=== PATIENT | female | born 1990 | race Caucasian/White ===

== ENCOUNTER 2024-11-26 09:33 | Outpatient (REF) | payer BC, SELFPAY ==
--- OUTSIDE RECORDS SUMMARY | 2024-11-26 10:30 | XMS_ITS | Encounter Summary ---
Author Organization [employer] Address [address] [facility] 7 [place] [address] Care Team Providers Care Winchman/Crane Operator Name Role Phone Yolanda Hoyos MD Primary Care Provider [phone] Reason for Visit * Reason Comments Med Refill Encounter Details Date Type Department Care Team (Late st Contact Info) Description 05/17/2022 Refill [facility] MEDICINE [address] [place] [address] Yolanda Hoyos MD [address] [place] [id number] Moderate persistent asthma without complication Social History Tobacco Use Types Packs/Day Years Used Date Smoking Tobacco: Never Assessed Comments Unknown Sex and Gender Information Value Date Recorded Sex Assigned at Female 01/23/2022 10:20 AM EDT Legal Sex Female 10:20 AM EDT Gender Identity Female 01/23/2022 10:20 AM EDT Sexual Orientation Choose not to disclose 2021 10:20 AM EDT documented as of this encounter Miscellaneous Notes * Telephone Encounter - Radha Engel - 05/17/2022 3:01 PM EST Called and spoke with pt. Scheduled follow up appt with Dr Hoyos on 06/01/22 @ 10am. Pt agreed * Telephone Encounter - Yolanda Hoyos MD - 05/17/2022 12:10 PM EST Serenity, she is overusing albuterol. I need to see this patient and optimize her asthma tretament.Not sending this albuterol script. documented in this encounter Plan of Treatment Not on file documented as of this encounter Visit Diagnoses Diagnosis Moderate persistent asthma without complication documented in this encounter Care Teams Winchman/Crane Operator Relationship Specialty Start Date End Date Yolanda Hoyos MD [address] [place] [id number] PCP - General Family Medicine 03/26/18 documented as of this encounter
--- OUTSIDE RECORDS SUMMARY | 2024-11-26 10:30 | XMS_ITS | Encounter Summary ---
Author Organization [employer] Address [address] [place] [address] 7 [place] [address] Care Team Providers Care Biomass Facilitator Name Role Phone Yolanda Hoyos MD Primary Care Provider [phone] Encounter Details Date Type Department Care Team (Late st Contact Info) Description 01/21/2024 Orders Only [facility] [address] [place], [place] [id number] Provider, MD Earle Social History Tobacco Use Types Packs/Day Years Used Date Smoking Tobacco: Never Passive Smoke Exposure: Never Smokeless Tobacco: Never Housing Stability Answer Date Recorded What is your housing situation today? I have cedricjonelle arias 01/29/[address] you li ve. Do you have problems with any of the following? None of the above 01/29/2023 Food Insecurity Answer Date Recorded Within the past 12 months, y ou worried that your food would run out before you got money to buy more: Never True 01/29/2023 Within the past 12 months,th e food you bought just didn't last and you didn't have enough money to get more: Never True 08/2022 Transportation Answer Date Recorded In the past 12 months, has l ack of transportation kept you from medical appts, meetings, work or from getting things needed for daily living? No 01/29/2023 Utilities Answer Date Recorded In the past 12 months, has t he electric, gas, oil or water company threatened to shut off services in your home? No 01/29/2023 Comments Unknown Sex and Gender Information Value Date Recorded Sex Assigned at Female 01/23/2022 10:20 AM EDT Legal Sex Female 10:20 AM EDT Gender Identity Female 01/23/2022 10:20 AM EDT Sexual Orientation Choose not to disclose 2021 10:20 AM EDT documented as of this encounter Plan of Treatment Not on file documented as of this encounter Procedures Procedure Name Priority Date/Time Associated Diagnosis Comments ABO GROUP Routine 01/21/2024 9:04 AM EDT CBC Routine 01/21/2024 9:00 AM EDT documented in this encounter Results * ABO Group (01/21/2024 9:04 AM EDT) Historical Provider LAB BLOOD BANK TEST ORDER RAJANI Final Result * CBC (01/21/2024 9:00 AM EDT) Blood Venous blood specimen / Unknown Historical Provider LAB BLOOD ORDERABLES Julianna l Result documented in this encounter Visit Diagnoses Not on filedocumented in this encounter Care Teams Biomass Facilitator Relationship Specialty Start Date End Date Yolanda Hoyos MD [address] [place] [id number] PCP - General Family Medicine 03/26/18 documented as of this encounter
--- OUTSIDE RECORDS SUMMARY | 2024-11-26 10:30 | XMS_ITS | Encounter Summary ---
Author Organization [employer] Address [address] [place] [address] [place] [address] Care Team Providers Care Human Performance Consultant Name Role Phone Yolanda Hoyos MD Primary Care Provider [phone] Reason for Visit * Reason Onset Date Comments Med Refill 05/17/2022 Encounter Details Date Type Department Care Team (Late st Contact Info) Description 05/17/2022 Refill [facility] MEDICINE [address] [place] [address] Yolanda Hoyos MD [address] [place] [phone] Moderate persistent asthma without complication Social History [...] encounter Miscellaneous Notes * Telephone Encounter - Nain Hill - 05/17/2022 11:48 AM EST Tc from pt requesting med refill Proventil ( 90 base ) documented in this encounter Plan of Treatment Not on file documented as of this encounter Visit Diagnoses Diagnosis Moderate persistent asthma without complication documented in this encounter Care Teams Human Performance Consultant Relationship Specialty Start Date End Date Yolanda Hoyos MD [address] [place] [id number] PCP - General Family Medicine 03/26/18 documented as of this encounter
--- OUTSIDE RECORDS SUMMARY | 2024-11-26 10:30 | XMS_ITS | Encounter Summary ---
Author Organization [facility] Address [address] [place] [phone] Phone Care Team Providers Care Costume Designer Name Role Phone Yolanda Hoyos MD Primary Care Provider [phone] Encounter Details Date Type Department Care Team ([facility] st Contact Info) Description 05/16/2021 Procedure Pass [facility] L[facility]D Procedures [address] [place] [address] Social History Tobacco Use Types Packs/Day Years Used Date Smoking Tobacco: Never Smokeless Tobacco: Never Alcohol Use Standard Drinks/Week Comments Not Currently 0 (1 standard drink = 0.6 oz pur e alcohol) Comments No Sex and Gender Information Value Date Recorded Sex Assigned at Female 05/14/2021 5:08 PM EST Legal Sex Female 12:17 PM EDT Gender Identity Female 05/14/2021 5:08 PM EST Sexual Orientation Straight 05/14/2021 5: 08 PM EST documented as of this encounter Plan of Treatment Not on file documented as of this encounter Visit Diagnoses Not on filedocumented in this encounter Additional Health Concerns Infection Onset Date Last Indicated Resolved Time CoV-Risk 07/18/2024 07/18/2024 07/29/2024 1:21 AM EDT documented as of this encounter Care Teams Costume Designer Relationship Specialty Start Date End Date Yolanda Hoyos MD [address] [place] [address] PCP - General Pediatrics 12/13/20 documented as of this encounter Additional Source Comments The information contained in this document represents components of the legal health record. It is not the complete legal health record.[facility]
--- OUTSIDE RECORDS SUMMARY | 2024-11-26 10:30 | XMS_ITS | Encounter Summary ---
Author Organization [facility] Address [address] [place] [address] Phone Care Team Providers Care Sand Temperer Name Role Phone Yolanda Hoyos MD Primary Care Provider [phone] Encounter Details Date Type Department Care Team ([facility] st Contact Info) Description 07/18/2024 Procedure Pass [facility], Ct Scan - [address] [address] Social History Tobacco Use Types Packs/Day Years Used Date Smoking Tobacco: Never Smokeless Tobacco: Never Alcohol Use Standard Drinks/Week Comments Not Currently 0 (1 standard drink = 0.6 oz pur e alcohol) Education Answer Date Recorded Are you interested in more education? Not on mauricio e 07/22/2022 Are you concerned about learning? Not on file 07/22/2022 No 07/22/2022 No 07/22/2022 Food Answer Date Recorded Within the past 6 months we worried whether our food would run out before we got money to buy more. Never True 07/18/2024 Within the past 6 months the food we bought just didn't last and we didn't have enough money to get more. Never True Residential Stability Answer Date Recor ded What is your housing situation today? I have cedric sing 07/18/2024 How many times have you move d in the past 12 months? Zero (I did not move) 07/18/2024 Paying for Meds Answer Date Recorded Do you have trouble paying for medicines? No 07/18/2024 Paying Utility Bills Answer Date Record ed Do you have trouble paying your heating or elect ricity bill? No 07/18/2024 Transportation Answer Date Recorded Has the lack of transportati on kept you from medical appointments or from getting medications? No 07/18/2024 Digital Access Answer Date Recorded No 07/18/2024 Yes 07/18/2024 Do you have reliable internet access at home? Ye s 07/18/2024 Do you have a device (e.g., phone, tablet, computer) with a working camera? Yes 07/18/2024 Intimate Partner Violence Answer Date R ecorded Are you denied basic needs s uch as food, clothing, or medical care? No 07/18/2024 In the past 12 months have y ou been in a relationship with a person who hurts, threatens, or tries to control you? No 07/18/2024 Are you denied basic needs s uch as food, clothing, or medical care? No 07/18/2024 In the past 12 months have y ou been in a relationship with a person who hurts, threatens, or tries to control you? No 07/18/2024 Comments No Sex and Gender Information Value Date Recorded Sex Assigned at Female 05/14/2021 5:08 PM EST Legal Sex Female 12:17 PM EDT Gender Identity Female 05/14/2021 5:08 PM EST Sexual Orientation Straight 05/14/2021 5: 08 PM EST documented as of this encounter Functional Status * Calculated C-SSRS Risk Score (Lifetime/Recent) Answer Date of Assessment Author No Risk Indicated 07/18/2024 10:05 AM EDT Leann Richard, SABINE * [place] Suicide Severity Rating Scale (Screener/Recent Self-Report) Question Answer Date of Assessment Author 1. Wish to be (Past 1 Month) No 025 10:05 AM Leann Ibarra, RN 2. Non-Specific Active Suici mercedez Thoughts (Past 1 Month) No 07/18/2024 10:05 AM YARIELT Leola Richard RN 6. Suicidal Behavior (Lifetime) No 10:05 AM Leann Ibarra, RN documented as of this encounter Plan of Treatment Not on file documented as of this encounter Visit Diagnoses Not on filedocumented in this encounter Additional Health Concerns Infection Onset Date Last Indicated Resolved Time CoV-Risk 07/18/2024 07/18/2024 07/29/2024 1:21 AM EDT documented as of this encounter Care Teams Sand Temperer Relationship Specialty Start Date End Date Yolanda Hoyos MD [address] [place] [address] PCP - General Pediatrics 12/13/20 documented as of this encounter Additional Source Comments The information contained in this document represents components of the legal health record. It is not the complete legal health record.[facility]
--- OUTSIDE RECORDS SUMMARY | 2024-11-26 10:30 | XMS_ITS | Clinical Summary ---
Author Organization [facility] Address [address] [address] Phone Care Team Providers Care [facility] Lead Name Role Phone Yolanda Hoyos MD Primary Care Provider [phone] Allergies Active Allergy Reactions Criticality Noted Date Comments Animal Dander 12/11/2022 Medications albuterol 90 mcg/actuation inhaler Inhale 1 puff into the lungs every 6 (six) hours as needed. 18 g 5 4 Active PNV no.95/ferrous fum/folic ac ( ORAL) Take by mouth. Active fluticasone propionate (FLONASE) 50 mcg/actuation nasal spray 1 spray by Nasal route daily. Active omeprazole (PRILOSEC) 20 MG capsule Take 20 mg by mouth daily. Active acetaminophen (TYLENOL) 325 mg tablet Take 3 tablets (975 mg total) by mouth every 6 (six) hours as needed. 4 Active docusate sodium (COLACE) 100 MG capsule Take 1 capsule (100 mg total) by mouth 2 (two) times a day. 4 Active ibuprofen (ADVIL,MOTRIN) 600 MG tablet Take 1 tablet (600 mg total) by mouth every 6 (six) hours as needed. 60 tablet 4 Active fluticasone-umecl idin-vilanter (TRELEGY ELLIPTA) 200-62.5-25 mcg inhalerIndication s:Moderate persistent asthma without complication Inhale 1 puff into the lungs daily. 60 each 11 5 Active Active Problems Problem Noted Date Diagnosed Date Delivery by section using T-shaped inci oumou 01/21/2024 Overview (01/21/2024): NO TOLAC Rash 01/02/2024 Assessment & Plan (01/02/2024 2:52 PM EDT): Has a patch of erythematous circular lesions under right breast. It is not painful or itchy. Not very inflamed. Recommended watching, if no improvement could use hydrocortisone 1% cream twice a day. Maternal varicella, non-immune 06/27/2023 Rubella non-immune status, antepartum 06/27/2023 Moderate persistent asthma without complication 05/30/2022 Overview (06/13/2023): Asthma well controlled with Trellegy and PRN albuterol. Assessment & Plan (11/01/2023 10:10 AM EDT): Pt states asthma is stable. Has not had to use albuterol in 4 mos or more. Assessment & Plan (12/11/2022 10:32 AM EDT): Persistent asthma, now with good control both symptomatically and on spirometry on high-dose Trelegy Ellipta. Would suggest stepdown therapy, and given her intent to get , would prefer her on Symbicort. We will send prescription for high-dose Symbicort 2 puffs twice daily with a spacer. She will retry montelukast, though knows to stop immediately if develops mood disturbance. Continue albuterol if needed. She also will call if unable to get Symbicort or if on Symbicort has worsening asthma control. Assessment & Plan (09/01/2022 10:59 AM EDT): Moderate to severe persistent asthma, improved but with still inadequate control. Indeterminant FeNO level suggesting inhaled steroid content likely adequate though may benefit from additional long-acting bronchodilator. Patient also tells me today she is thinking about getting again, and wants to be assured that all her medications are safe. We discussed the primary importance of maintaining good asthma control during . PLAN: Hold Dulera START high-dose Trelegy Ellipta. If not covered, would then suggest resuming Dulera and adding Spiriva or Incruse Ellipta. START montelukast. Potential side effects were reviewed with patient again and told to discontinue if develops any symptoms. Continue albuterol as needed Repeat spirometry in 3 months. If despite maximum inhaler and leukotriene inhibition still with inadequate control, would assess for further asthma phenotyping as may be a candidate for injectable medicine. Assessment & Plan (05/30/2022 9:47 AM EST): History consistent with moderate persistent asthma, worsening severity and/or control since 1 year ago. Currently on high-dose Flovent with inadequate response continuing to use excess ANTONINA therapy. Unclear contribution of intrinsic asthma versus extrinsic asthma, but nonetheless increase stepup therapy recommended. We agreed on the following plan: Request review of prior PFTs from the fall at [facility]. Discontinue Flovent START high-dose Advair HFA 2 puffs twice daily with spacer Continue albuterol as needed If after 2 to 4 weeks on Advair, she continues to require regular albuterol use, she will call. At that point, recommend trial of montelukast 10 mg nightly. Typical side effects, including but not limited to vivid dreams and mood disturbance were reviewed with the patient. Plan repeat PFTs with FeNO level in 3 months. Allergic rhinitis due to animal hair and dander 05/30/2022 Overview (05/30/2022): Triggers : Dust mite, cat and dog dander and spring pollens (never tested) Assessment & Plan (06/13/2023 9:31 AM EDT): Patient takes Claritin as needed. Assessment & Plan (12/11/2022 10:33 AM EDT): Mild active rhinitis, with minimal use. We will be trying montelukast once again. Continue Flonase and Claritin as needed. Consider skin testing in the future. Assessment & Plan (09/01/2022 10:59 AM EDT): Currently inadequately controlled. Encouraged daily use of Flonase nasal spray. We will add montelukast as above. Assessment & Plan (05/30/2022 9:45 AM EST): Moderate nasal congestion with ongoing dog dander exposure. Extent of allergen contribution unclear. Encourage use of daily antihistamine for active symptoms. Consider regular use of Flonase. If start Singulair, monitor for response to rhinitis symptoms. Consider formal allergy skin testing in the future. Resolved Problems Problem Noted Date Diagnosed Date Resolved Date Normal , unspecified trimester 01/21/2024 03/05/2024 Abnormal ultrasound 11/30/2023 03/05/20 Assessment & Plan (01/02/2024 12:49 PM EDT): Repeat US was normal by Level 2 Assessment & Plan (11/30/2023 4:38 PM EDT): There appears to be an echogenic mass just anterior to the cervix, about at the level of the scar. It was not visualized on anatomic survey. I have recommended a Level II ultrasound. Breech presentation 11/30/2023 03/05/20 Assessment & Plan (12/26/2023 2:04 PM EDT): Fetus feels vertex by Fernando's today, however will check position by U/S next week due to recent breech presentation by U/S and most recent patient relations specialist exam. Briefly reviewed mgmt of persistent breech. Assessment & Plan (12/14/2023 2:52 PM EDT): Breech today by gutierrez and US on 12/11/23 We discussed possibility of version at 37-38 weeks. Pt interested in that option. Review at [facility] if Breech persists Spinning babies recommended Assessment & Plan (11/30/2023 4:45 PM EDT): Still feels breech on today's exam. She will be having a follow-up Level II for the questionable mass in the ANDREA near the cervix at the level of the previous c- section incision. Elevated glucose tolerance test 11/01/2023 03/05/2024 Overview (11/01/2023): 1 hour 144 3 hour ordered Significant discrepancy betw een uterine size and clinical dates, antepartum 11/01/2023 Overview (12/14/2023): S>D taped to 33 at 29+3. Growth US ordered. 11/16/23 73% with AC at 90% 12/11/23 62%ile Assessment & Plan (11/16/2023 5:42 PM EDT): 73% with AC at 90% on ultrasound today. Assessment & Plan (11/01/2023 10:15 AM EDT): S>D taped to 33 at 29+3. Growth US ordered. Encounter for supervision of normal in third trimester 06/13/2023 02/14/2024 Overview (01/02/2024): CNM OB-CMI score: 1 [06/13/2023] Group PN care? * screening Neg cfDNA, neg foresight (intermediate risk for FX, no f/u needed) Baby ASA- yes, will start at 12wks Rh POS GC/Chlam Neg/Neg PAP ASCUS/HPV neg 06/2022- rpt in 3yrs Flu Declines RSV Declines COVID-19 * Hgb 12.5 GTT 144 - normal 3 hour Repeat RPR NR Tdap Declines EPDS 0 PPBC WIthdrawal GBS Declines testing Infant Feeding Plan Breast Male fetus, plans circ Assessment & Plan (01/17/2024 4:34 PM EDT): Florencia is feeling well, but frustrated with lack of spontaneous labor yet. Baby active. She denies vb, lof, ctxs Requests SVE today with sweep which was done. Cx: tight -3 soft, posterior Reviewed indications for calling CNM Pt had questions regarding TOLAC possibility with a subsequent baby. All questions encouraged and answered. Assessment & Plan (01/09/2024 11:28 AM EDT): S=d, no complaints, fm good, fh good Tried to strip membranes today but FT and posterior - difficult Assessment & Plan (01/02/2024 2:51 PM EDT): Florencia is a 33 y.o. at 38w2d doing well. Denies VB/LOF/Ctxs. + FM. Declines TDAP and RSV. Assessment & Plan (12/26/2023 2:09 PM EDT): Florencia is doing well. Reviewed s/s of active labor and contacting practice, self-care in early labor. Pt declined GBS screening today. I reviewed rationale for universal screening and antibiotic treatment for GBS carriers. Discussed risk of infection with and without prophylaxis, reviewed fatality rate of 4-6% when sepsis is present. Advised on 48-hr rule-out. Pt given Evidence Based handout on GBS screening and management to review. After counseling she continues to decline. Reviewed that treatment in this case would be recommended based on risk factors. Reviewed rationale for Flu shot as well, she declines. Assessment & Plan (12/14/2023 2:52 PM EDT): Florencia is feeling well. Baby is active. She denies vb, lof, ctxs We reviewed US from 12/10--breech persists, growth normal, mass not oberved. Pt c/o dyspareunia, feeling vagina is stretcher and drier than is typical for her. Denies s/sx of vaginitis or urinary sx. Recommended silicone based lube. EVENS with GBS testing 1 wk Assessment & Plan (11/30/2023 4:25 PM EDT): She notes good movement. She denies any vaginal bleeding, leakage of fluid, or regular contractions. Overall, she is doing well. She declines Tdap. Assessment & Plan (11/16/2023 5:43 PM EDT): Florencia is feeling well. Baby is moving all the time. Reviewed overall normal size at 73%. There was a mass seen in the lower uterine segment above the internal os, no vascularity. No official read of ultrasound yet. I recommended scheduling a level 2 while we wait for the final read. She agrees. Message sent to schedule. No other concerns. Assessment & Plan (11/01/2023 10:14 AM EDT): Florencia feeling well, no complaints. Denies vb, lof, ctxs. Baby boy is active. Declines tdap Mood is good--EPDS 0 today We discussed bc options--would like to continue with withdrawal method. 3 hour GTT in process EVENS 2 wks Assessment & Plan (10/15/2023 10:59 AM EDT): Here with her son. Just did GTT/CBC/RPR, results pending. Reports baby is very active, more active than her first. Discussed expectations for movement and FM monitoring. Reviewed third trimester warning signs and reasons to call. Discussed pre-registration packet. Assessment & Plan (09/17/2023 10:55 AM EDT): Florencia feels well. Feeling regular movement. Discussed GTT/CBC/RPR at time of n.v. Assessment & Plan (08/28/2023 3:12 PM EDT): Here after FAS. Overall normal, EFW 78%ile, nml fluid, post plac. Limited views of spine, pema rpt in 2-3w, pt amenable. Feeling well in 2nd tri. Reviewed comfort measures. Reviewed steps to take toward optimal health in . Reviewed s/s PTL, danger signs, when/how to call. Assessment & Plan (08/13/2023 1:45 PM EDT): Florencia is doing well. She is starting to feel flutters. Had some sharp right sided pain yesterday when going up stairs, coughing etc. We reviewed likely round ligament pain. Questions about safe activities and lifting in answered. Discussed using good body mechanics. Offered AFP. She declines. Has anatomy scan scheduled for 08/27. Assessment & Plan (07/23/2023 1:04 PM EDT): Florencia is a 33 y.o. at 14w1d states she feels well today. Denies any concerns at this time. Denies any LOF/Vaginal bleeding/Ucs. Reports possible +FM -Discussed FM at this [place] and when to anticipate more movement -Review signs and symptoms of Pre-term Labor and when/how to contact midwives -Anatomy scan ordered for 20 wks Advised that our OBs review all US and might make further recommendations -NV in 4 weeks History of pre-eclampsia in prior , currently 06/13/2023 03/05/2024 Overview (08/28/2023): Basline HELLP labs, P/C ratio: ordered with intake labs Baby ASA at 12-14 wks - reviewed at FOB, rx sent Pre-e at 42w based on severe range BP and proteinuria. Needed IV labetalol & MgSO4. PP went home on PO labetalol BID Assessment & Plan (01/02/2024 2:50 PM EDT): Normotensive Reviewed s/s of Pre-E and when to call Assessment & Plan (11/30/2023 4:22 PM EDT): Her blood pressure remains normal and she has no signs or symptoms of preeclampsia. Assessment & Plan (11/01/2023 10:12 AM EDT): normotensive Assessment & Plan (08/28/2023 3:13 PM EDT): Taking ASA Assessment & Plan (07/23/2023 1:04 PM EDT): -Taking ASA Assessment & Plan (06/19/2023 1:07 PM EDT): Reviewed recommendation for daily baby aspirin starting at 12wks and continuing through end of . Rx sent today. History of delivery , currently 06/13/2023 03/05/2024 Overview (10/15/2023): Date of surgery: 05/16/21 Reason for prior : Arrest of dilation at 9 cm w distress at 42w Incision type: Low transverse at [facility] Records requested/reviewed: N/A Contraindications to TOLAC include > 2 prior births, prior uterine rupture or dehiscence, prior transfundal incision (classical, T, or J incisions; myomectomy with incision into uterine cavity or by surgeon's discretion), interpregnancy interval < 6 months Anterior placenta ? No If anterior, schedule level 2 US Delivery route counseling: Began at 20w--disc pema for IOL by 41w at this practice Preferred mode of delivery: TOLAC but only with spontaneous labor, CS at 41 weeks Consent signed: If calculator score <60%, schedule MD consult at 35-37 weeks 55% Calculator: [email or web address] culat or Assessment & Plan (01/17/2024 4:31 PM EDT): Pt continues to declines IOL. Plan is for scheduled RCS at 41 wks if no spontaneous labor before. Membranes swept today. Assessment & Plan (01/09/2024 11:20 AM EDT): Desires TOLAC if delivered before 41 weeks [place] IOL Assessment & Plan (01/02/2024 2:51 PM EDT): Plans TOLAC if spontaneous labor, C/S scheduled for 41 weeks if no spontaneous labor Doing acupuncture, will add in pumping. Reviewed s/s of labor and when to call Assessment & Plan (11/30/2023 4:24 PM EDT): Risk, benefits, and alternatives manage were reviewed with the patient. I explained that her overall chance of success is approximately 55% based on the calculated. However, I did explain that this is usually based on going into spontaneous labor as opposed to being induced. In addition, I reviewed that if she goes significantly past her due date, the chances of a successful TOLAC to decrease. In addition, I explained that the risks of complications are greatest with a failed TOLAC as opposed to a scheduled repeat section in terms of bleeding, infection, and damage to internal organs. Assessment & Plan (10/15/2023 11:00 AM EDT): Counseled last visit. She reviewed handout and has decided she would like TOLAC but only with spontaneous labor. Plans to schedule at 41 weeks. Will request case now. Assessment & Plan (09/17/2023 10:56 AM EDT): The patient presents to discuss the option of trial of labor after vs scheduled repeat . The patient has reviewed the practice consent form after Section: Deciding What's Right for Me and has had the opportunity to ask questions. Verbal discussion with this provider included a personalized discussion of this patient's likelihood of successful based on past OB history, current course and health risk factors, and [facility] calculator score of 55%. We reviewed that these factors may evolve as the progresses, as can patient preferences; therefore conversation around mode of delivery may be revisited at a later date. We reviewed that it is difficult to predict who will have a successful , and no guarantees can be made around ultimate mode of delivery. We reviewed practice policy regarding post-dates and induction of labor in individuals with a history of . All questions were answered, and the patient would like to review counseling packet and consider further. Please discuss and document consent at n.v. Assessment & Plan (07/23/2023 1:04 PM EDT): -She is thinking of a TOLAC -Needs further counseling Obesity in 06/13/2023 024 Overview (06/13/2023): Obesity in (BMI >30) BMI at Intake 32.6 (by patient reported pre-gravid weight) Date Obesity plan of care discussed Pre- BMI > 50 transfer to tertiary care BMI > 50 at anytime during : schedule anesthesia consult Recommend daily baby aspirin if another risk factor is present (nulliparity, family h/o pre-eclampsia in mother or sister, age >= 35, IVF , previous with SGA, previous stillbirth, interval >= 10 years between pregnancies) First trimester screen for diabetes - HgbA1c or 1-hr glucose tolerance test: HgbA1c ordered with intake labs Nutrition counseling 11-20lb weight gain surveillance: Pre- BMI 35.0-39.9, weekly testing at 36 weeks, EFW at 32 and 36 weeks Pre- BMI 40 or more, weekly testing at 34 weeks, EFW 32 and 36 weeks Induction only if indicated PP lovenox according to guidelines care following delivery 05/16/2021 07/06/2022 Meconium in amniotic fluid 05/15/2021 0 07/06/2022 Overview (05/15/2021): AROM for meconium stained fluid at 2119- will plan for pedi at delivery. Positive GBS test 05/14/2021 07/06/2022 Overview (05/14/2021): Abx during labor Assessment & Plan (05/14/2021 5:01 PM EST): -Discussed that GBS bacteria does nothing to her in terms of s/sx of infection. -The reason we check for this is because there is an approx. 1% risk that the baby will acquire this bacteria through the labor process. This bacteria can make the baby really sick. -Advised that prophylaxis treatment during labor significantly lowers this risk. -Antibiotics are given every 4 hrs as long as she is in labor. It goes in the IV. It usually takes about 30 mins for the medication to infuse in. After that she is disconnected from an IV pole/bag until the next dose. Normal intrauterine , antepartum 05/14/2021 07/06/2022 Pre-eclampsia affecting , antepartum 05/14/1907/06/2022 Overview (05/16/2021): IOl for pre-eclampsia with severe features 05/14/21 17:30 admitted to unit for NST, BP 155/99, asymptomatic. HELLP labs ordered 18:12 severe range BP treated with 20 mg IV Labetalol 19:45 severe range BP treated with 20 mg IV Labetalol 23:30 cervical ripening balloon placed along with PO Misoprostol 50 mcg. MgSO4 initated 05/15/21 Balloon removed in AM 14:30 Pitocin started at 1430 21:20 AROM meconium fluid 05/16/21 06:30 SVE 7/90/-1 08:30 epidural placed 12:15 SVE 7/90/-2, IUPC placed 15:45 SVE 8-9/100/-1 06:30 SVE 9/100/0 Assessment & Plan (05/16/2021 6:44 PM EST): A: 31 y.o. at 42+3 with pre-eclampsia with severe features BP stable Cat 1 FHR GBS+, s/p two doses PCN AROM x 21 hours, meconium stained fluid Covid neg Asthma P: - HELLP labs repeated - Continue Pitocin titration per protocol. - Continue GBS prophylaxis - Continue with PO labetalol 200mg TID and mag sulfate, seizure precautions, BP checks per protocol - Plan for pedi at delivery due to meconium, MgSO4 administration - MD in house and available as needed. Will give report to oncoming team Assessment & Plan (05/14/2021 6:13 PM EST): 05/14/21 Initial BP on admission: 155/99, Asymptomatic. -20 min later 157/102 -15 min after that 168/94. Meets criteria for GHTN -#1 dose of labetalol 20 mg ordered -HEELP labs ordered -Discussed diagnosis of GHTN and recommended IOL tonight. Pt requested to go home to get her things. I discussed w/ Florencia pre-e implications s/sx and adverse effects. I strongly recommended her not to leave at this time. She understood and agreed to stay. -She will like to wait for anything related to IOL until her arrives -Consulted w/ MD Escalante. Agrees w/ POC awaiting lab results Encounter for induction of labor 05/14/2021 07/06/2022 Overview (05/14/2021): 05/14/21 1800 Admitted for GHTN Assessment & Plan (05/15/2021 10:32 PM EST): Continue to titrate pitocin per protocol. Assessment & Plan (05/14/2021 6:12 PM EST): 05/14/21 1800 Admitted for GHTN -Admit to CBC -Pt consented to COVID testing -Admission labs ordered -Reactive NST -Cont. Monitoring -Plan for VE when her arrives Encounter for supervision of normal in third trimester 05/12/2021 07/06/2022 Overview (05/12/2021): CNM - 7 sister transfer at 42wks USE LARGE BP CUFF Dredgemaster-- Codie Aida No OB-CMI score has been filled out for this encounter. Rh POS GC/Chlam neg PAP ASCUS/HPV neg 06/25/20 Tdap declined Flu * COVID-19* Hgb 12.3/37.5 GTT 120 28 wk Repeat RPR * GBS pos (was planning risk based treatment approach at center) PPBC * screening - low risk first trimester screen Labs from transfer records: A+, antibody screen neg, rubella immune, syphilis neg, HIV neg, Varicella immune, Hep C neg, Hep B neg, TSH 2.47, Assessment & Plan (05/14/2021 5:00 PM EST): Florencia is a 31 y.o. at 42w0d states she feels well today. Denies any concerns at this time. Denies any LOF/Vaginal bleeding/Ucs. Reports abundance of FM. -Discussed FM at this [facility] and [facility] -Review signs and symptoms of Labor and when/how to contact midwives -Oriented to the practice and procedures for labor -Pt reassured about the difference between the center and a hospital setting. -CBC visitor policy discussed -GBS Positive -Reviewed end of discomforts and comfort measures. -Discussed natural ways of promoting labor. -Pt stated she has had 4 membrane sweeping VE approx.1-2 cm Post-term beyond 4 2 weeks, antepartum 05/12/2021 07/06/2022 Overview (05/14/2021): Will be 42wks on 05/13/21 05/09/2021- BPP 8/8, NATALI 7.80, MVP 5.43 2/16- Reactive NST BPP scheduled for 05/13 with visit to follow. Will need to finalize induction plan at that visit (tenatively scheduled for cervical ripening on 05/1605/13/21: BPP 8/8, NATALI 7.8. Counseled for risk of demise. Planning IOL for 05/16/21. Daily NSTs until Sunday Assessment & Plan (05/14/2021 6:10 PM EST): -Reactive NST Assessment & Plan (05/14/2021 4:52 PM EST): -05/13/21 US prelim report: BPP 8/8 NATALI 7.8 -We discussed that after 41 weeks the placenta stops working as efficiently as it used to throughout the whole . This puts her at risk for uteroplacental insufficiency leading to a greater risk for demise. This risk increases after 42 wks GA. She is also at a greater risk for macrosomia, meconium stained fluid that may lead to aspiration of meconium, intrauterine infections, and cord compression. In large studies from the [place], the rate of antepartum was: 4 0 to 41 weeks - 0.86 to 1.08 per 1000 ongoing pregnancies 4 1 to 42 weeks - 1.2 to 1.27 per 1000 ongoing pregnancies 4 2 to 43 weeks - 1.3 to 1.9 per 1000 ongoing pregnancies > 43 weeks - 1.58 to 6.3 per 1000 ongoing pregnancies -Explained that this is the reason why we do testing on the baby after 41wks w/ BPP and NST weekly. -Recommended IOL tonight given that she is already 42 wks -We reviewed that labor induction is a slow process and can take time to produce effective contractions. Depending on a person's body the induction process can take 1-5 or more days. It is unclear whether or not induction increases the risk of . Inductions are usually a 2 step process involving cervical ripening and uterine contractions. We discussed: Cervadil; cervadil is a prostaglandin that is embedded in a string. It is placed in the vagina for 12 hours to cause cervical softening or ripening. The advantages are that it is gentle, unless clinically indicated the patient does not need an IV or to be continuously monitored. It can also be removed if it causes too many contractions. The disadvantages are that sometimes it has minimal effects. Balloon: the advantages are that it can progress dilation to 4-5cm, is relatively gentle over the 12 hours, do not need an IV or to be continuously monitored. Disadvantages are that it can be crampy, uncomfortable during insertion, and even though may be 4-5cm, does not necessarily mean that labor will begin. Misoprostol: can be given orally or vaginally every 4+ hours. Advantages are that it is a prostaglandin and helpful with cervical ripening. Also would not need an IV. Disadvantages are that if it produces too frequent contractions, the medication cannot be turned off , therefore she would need to be monitored continuously and subsequent doses are administered according to strict criteria. Pitocin: Is administered via an IV pump where the dose is increased every 30 minutes. The advantages are that it is very closely controlled and can be stopped easily. The disadvantages are that it is not as effective when the cervix is less ripe. We disc that pitocin and the balloon can be used together. AROM: More natural way of inducing labor. However, once the bag of water is broken that puts her at an increase risk for infections. This risk increases after 24hrs. We try to reserve AROM until we have established a contraction pattern -Florencia really wants an un-medicated . I advised that at this time we would need to use medications to get her into labor. When it comes to pain medications she can still choose not have any medications for pain. -We discussed the options for pain relieve at the [facility] including NO2, hydro therapy shower/tub, tens unit, mobility, narcotics, and epidural. -Florencia and her partner would like to wait until Sunday for the IOL. -Recommended daily NST until Sunday which they agreed to. -Discussed warning s/sx and when to call back -Also recommended nipple stimulation at home Immunizations No known immunizations Family History Medical History Relation Comments No Known Problems Brother 1 No Known Problems Brother 2 Hypertension Father Heart disease Maternal Grandmother Hypertension Mother Heart attack Paternal Grandfather No Known Problems Sister No Known Problems Son Relation Status Comments Brother 1 Alive Brother 2 Alive Father Alive Maternal Grandfather Maternal Grandmother Mother Alive Paternal Grandfather Paternal Grandmother Sister Alive Son Alive Social History Tobacco Use Types Packs/Day Years Used Date Smoking Tobacco: Never Smokeless Tobacco: Never Tobacco Cessation:Counseling Given: Not Answered Alcohol Use Standard Drinks/Week Comments Not Currently [...] Orientation Straight 05/14/2021 5: 08 PM EST Last Filed Vital Signs Vital Sign Reading Time Taken Comments Blood Pressure 129/84 07/18/2024 9:03 PM EDT Pulse 90 07/18/2024 9:03 PM EDT Temperature 37.2 C (98.9 F) 07/18/2024 9:03 PM EDT Respiratory Rate 16 07/18/2024 9:03 PM EDT Oxygen Saturation 99% 07/18/2024 9:03 PM EDT Inhaled Oxygen Concentration - - Weight 81.6 kg (180 lb) 07/18/2024 10:03 AM EDT Height 162.6 cm (5' 4 ) 07/18/2024 10:03 AM EDT Body Mass Index 30.9 07/18/2024 10:03 AM EDT Plan of Treatment Health Maintenance Due Date Last Done Comments Adult Td,Tdap Booster 1991 DEPRESSION SCREENING 2003 PNEUMOCOCCAL VACCINES (0-49 years) (1 of 2 - PCV) 2010 COVID-19 VACCINE (2023-2 5 season) 2023 INFLUENZA VACCINE (#1) 2024 PAP SMEAR 07/06/2025 07/06/2022 HEPATITIS C SCREENING Completed 06/19/2023 HIV ONE-TIME SCREENING (18-6 5 YEARS) Completed 06/19/2023 SMOKING STATUS SCREENING (On ce After 26 Yrs) Completed 07/18/2024 HEPATITIS A VACCINES Aged Out No long er eligible based on patient's age to complete this topic HIB VACCINES Aged Out No longer eligi ble based on patient's age to complete this topic MENINGOCOCCAL VACCINES (ACWY) Aged Out No longer eligible based on patient's age to complete this topic MENINGOCOCCAL VACCINES (B) Aged Out N o longer eligible based on patient's age to complete this topic Medical Devices Not on file Procedures Procedure Name Priority Date/Time Associated Diagnosis Comments HEPATITIS C ANTIBODY, QUALITATIVE Routine 06/19/2023 12:34 PM EDT Encounter for supervision of normal in first trimester Need for hepatitis C screening test PAP TEST Routine 07/06/2022 12:00 AM EDT from Last 3 Months or Most Recently Relevant to Health Maintenance Results * Hepatitis C antibody, qualitative (06/19/2023 12:34 PM EDT) HCV NON-REACTIV E NON-REACTI VE [facility] Blood 06/19/2023 12:3 4 PM EDT 06/19/2023 12:39 PM EDT us Flavio Augustin [facility] LAB BLOOD ORDERABLES Final R esult [address] [address] * (ABNORMAL) Pap Test (07/06/2022 12:00 AM EDT) 07/06/2022 07/07/2022 9:3 1 AM EDT Narrative SEE NARRATIVE - 07/12/2022 3:49 PM EDT [address] [address] Show Card Writer: Asiya Araujo MD HOST/HOSTESS HEAD Cytology Report FINAL DIAGNOSIS A. PAP SMEAR (SUREPATH) CE: SPECIMEN ADEQUACY: Satisfactory for evaluation; transformation zone present. INTERPRETATION: EPITHELIAL CELL ABNORMALITY - SQUAMOUS. Atypical squamous cells of undetermined significance. Electronically Signed Out By: MD Alexus Askew CT(ASCP) By his/her signature above, the pathologist listed as making the Final Diagnosis certifies that he/she has personally reviewed this case and confirmed or corrected the diagnosis. The Pap test is a screening test primarily for squamous cancers and precursors and has associated false-negative and false-positive results. New technologies such as liquid-based preparations may decrease but will not eliminate all false-negative results. Regular sampling and follow-up of unexplained clinical signs and symptoms are recommended to minimize false negative results. PROCEDURES/ADDENDA HPV Testing (Requested) Ordered Date: 07/07/2022 A. PAP SMEAR (SUREPATH) CE: Human Papilloma Virus Test NEGATIVE for high-risk Human Papilloma Virus types 16, 18, 45 and the Other high risk probe set (Includes 31, 33, 35, 39, 51, 52, 56, 58, 59, 66, 68) Note: Testing performed by [employer] HR-HPV analysis. Clinical correlation is advised. This HPV test was performed at [facility], [address] [place] [address]. This test has been FDA approved for [employer] cervical cytology specimens. The accuracy and precision of this test for all other specimen sources has been verified in the Cytopathology Laboratory of the [facility] and has not been cleared or approved by the U.S. Food and Drug Administration. Clinical correlation is advised. CLINICAL HISTORY Date of Last Menstrual Period: Not Provided Menstrual History: Unknown Other Clinical Conditions: Screening Pap SPECIMEN SOURCE A: PAP SMEAR (SUREPATH) CE Patient Name: RANJANA WALLA : 1990 (Age: 32) Sex: F Institution: [facility] [place] Location: [facility] Date of Collection: 07/06/2022 Date of Reported: 07/10/2022 17:51 Results to: Flavio Augustin CNM Flavio Augustin CNM CYTOLOGY ORDERABLES Edited R esult - Final SEE NARRATIVE from Last 3 Months or Most Recently Relevant to Health Maintenance Insurance [facility] Member Subscriber Plan / Payer (Ef fective 2020-Present) Name:Florencia Fonseca Relation to Subscriber:Spouse Name:ARSEN FONSECA Date of :1992 (Home) Address: [address] [place] [address] Payer ID:[id number] (NAIC) Type:HMO Address: [address] [place], [place] Member Subscriber Plan / Payer (Ef fective 2020-) Name:Raymundo Florencia Relation to Subscriber:Spouse Name:ARSEN FONSECA Date of :1992 (Home) Address: [address] [place] [address] Payer ID:[id number] (NAIC) Type:HMO Address: [address] [place], [place] [address] Advance Directives For more information, please contact: [phone] (9AM - 5PM [facility], Sunday-Sunday) * Full Code (Latest Code Status on File) Date Activated Date Inactivated Comments 01/21/2024 6:47 AM 01/22/2024 7:43 AM Question Answer Comments Code Status Confirmed With: Patient Code Status Communicated To: Inpatient Attending * Full Code Date Activated Date Inactivated Comments 05/14/2021 5:52 PM 01/21/2024 6:47 AM Question Answer Comments Code Status Confirmed With: Patient Care Teams Cognos Lead Relationship Specialty Start Date End Date Yolanda Hoyos MD [address] [place] [address] PCP - General Pediatrics 12/13/20 Additional Source Comments The information contained in this document represents components of the legal health record. It is not the complete legal health record.[facility]
--- OUTSIDE RECORDS SUMMARY | 2024-11-26 10:31 | XMS_ITS | Clinical Summary ---
Author Organization [employer] Address [address] [place] [address] 7[address] [place] [address] Care Team Providers Care Ornamenter Hand Name Role Phone Yolanda Hoyos MD Primary Care Provider [phone] Allergies No known active allergies Medications albuterol (ProAir HFA) 108 (90 Base) MCG/ACT inhaler Inhale 4 times a day. 2 Active fluticasone (Flonase) 50 MCG/ACT nasal spray Administer 1 spray into affected nostril(s) if needed at bedtime. 1 Active Proventil HFA 108 (90 Base) MCG/ACT inhalerIndicatio ns:Moderate persistent asthma without complication INHALE ONE PUFF EVERY 6 HOURS NEEDED SHORTNESS OF BREATH OR FOR WHEEZING 6.7 g 3 Active Trelegy Ellipta 200-62.5-25 MCG/ACT aerosol powder Inhale 1 puff Once per day. 5 Active fluticasone-salm eterol (Advair HFA) 230-21 MCG/ACT inhaler Inhale 2 puffs 2 times daily. 3 025 Discontin ued(Thera py completed ) Active Problems Problem Noted Date Diagnosed Date Anxiety about health 06/05/2022 Moderate persistent asthma without complication 05/30/2022 Overview (06/01/2022): Last Assessment & Plan: History consistent with moderate persistent asthma, worsening severity and/or control since 1 year ago. Currently on high-dose Flovent with inadequate response continuing to use excess ANTONINA therapy. Unclear contribution of intrinsic asthma versus extrinsic asthma, but nonetheless increase stepup therapy recommended. We agreed on the following plan: Request review of prior PFTs from the fall at [facility]. Discontinue Flovent START high-dose Advair [...] to animal hair and dander 05/30/2022 Overview (06/01/2022): Triggers : Dust mite, cat and dog dander and spring pollens (never tested) Last Assessment & Plan: Moderate nasal congestion with ongoing dog dander exposure. Extent of allergen contribution unclear. Encourage use of daily antihistamine for active symptoms. Consider regular use of Flonase. If start Singulair, monitor for response to rhinitis symptoms. Consider formal allergy skin testing in the future. Encounters Date Type Department Care Team Description 11/20/2024 2:15 PM EDT Office Visit [facility] [address] [place] [address] Yolanda Hoyos MD Moderate persistent asthma without complication (Primary Dx); Routine general medical examination at a health care facility; Dietary counseling; Exercise counseling; Obesity (BMI 30.0-34.9) 11/20/2024 Travel 11/13/2024 Patient Outreach [facility] [address] [employer], [place] [id number] Yolanda Hoyos MD Pre-visit Planning (Pre visit planning LVM ) 11/13/2024 Travel from Last 3 Months Social History Tobacco Use Types Packs/Day Years Used Date Smoking Tobacco: Never Passive Smoke Exposure: Never Smokeless Tobacco: Never Tobacco Cessation:Counseling Given: Not Answered Depression Answer Date Recorded Patient Health Questionnaire-9 Score 2 11/20/2024 Patient Health Questionnaire-9 Score 2 11/20/2024 Last PHQ-9: Questionnaire Data Not on file 0 11/20/2024 Housing Stability Answer Date Recorded What is your housing situation today? I have cedric arias 11/20/[address] you li ve. Do you have problems with any of the following? None of the above 11/20/2024 Food Insecurity Answer Date Recorded Within the past 12 months, y ou worried that your food would run out before you got money to buy more: Never True 11/20/2024 Within the past 12 months,th e food you bought just didn't last and you didn't have enough money to get more: Never True Transportation Answer Date Recorded In the past 12 months, has l ack of transportation kept you from medical appts, meetings, work or from getting things needed for daily living? No 11/20/2024 Utilities Answer Date Recorded In the past 12 months, has t he electric, gas, oil or water company threatened to shut off services in your home? No 11/20/2024 Depression Answer Date Recorded Patient Health Questionnaire-2 Score 0 11/20/2024 Internet Access Answer Date Recorded Internet Access Q1 Yes 11/20/2024 Internet Access Q2 Not on file 11/20/2024 Comments Unknown Sex and Gender Information Value Date Recorded Sex Assigned at Female 01/23/2022 10:20 AM EDT Legal Sex Female 10:20 AM EDT Gender Identity Female 01/23/2022 10:20 AM EDT Sexual Orientation Choose not to disclose 2021 10:20 AM EDT Last Filed Vital Signs Vital Sign Reading Time Taken Comments Blood Pressure 130/84 11/20/2024 2:07 PM EDT Pulse 76 11/20/2024 2:07 PM EDT Temperature 36.5 C (97.7 F) 11/20/2024 2:07 PM EDT Respiratory Rate 16 11/20/2024 2:07 PM EDT Oxygen Saturation 96% 06/01/2022 10:15 AM EST Inhaled Oxygen Concentration - - Weight 90.7 kg (200 lb) 11/20/2024 2:07 PM EDT Height 162.3 cm (5' 3.88 ) 11/20/2024 2:07 PM ED T Body Mass Index 34.46 11/20/2024 2:07 PM EDT Plan of Treatment Health Maintenance Due Date Last Done Comments HIV Screening 1990 Family Planning (PISQ) 2006 Hepatitis C Screening 2009 Hepatitis B Vaccines (1 of 3 - 19+ 3-dose series) 2010 Pneumococcal Vaccine: Pediatrics (0 to 5 Years) and At-Risk Patients (6 to 49) Years (1 of 2 - PCV) 2010 DTaP/Tdap/Td Vaccines (2 - T d or Tdap) 06/11/2019 06/10/2009 COVID-19 Vaccine (1 - 2023-2 5 season) 2024 Influenza Vaccine (#1) 2024 Pap Smear 07/06/2025 07/06/2022 Disability Screening 11/13/2025 11/13/2024 Alcohol/Substance Use Screening 11/20/2025 11/20/2024 Depression Screening 11/20/2025 11/20/2024, 11/20/2024 SDOH Screening 11/20/2025 11/20/2024 Tobacco Screening 11/20/2025 11/20/2024 Cervical Cancer Screening 07/07/2027 HPV/Cotest 07/07/2027 07/06/2022 Zoster Vaccines (1 of 2) 2041 RSV Patients and Patients Aged 60 years or older (1 - 1-dose 75+ series) 2066 HPV Vaccines Completed 07/13/2011, 03/10/2011, 01/05/2011 HIB Vaccines Aged Out No longer eligi ble based on patient's age to complete this topic Hepatitis A Vaccines Aged Out No long er eligible based on patient's age to complete this topic IPV Vaccines Aged Out No longer eligi ble based on patient's age to complete this topic Meningococcal B Vaccine Aged Out No l onger eligible based on patient's age to complete this topic Meningococcal Vaccine Aged Out No omari marija eligible based on patient's age to complete this topic RSV under 20 months Aged Out No longe r eligible based on patient's age to complete this topic Rotavirus Vaccines Aged Out No longer eligible based on patient's age to complete this topic Procedures Procedure Name Priority Date/Time Associated Diagnosis Comments HM PAP/HPV Routine 07/06/2022 from Last 3 Months or Most Recently Relevant to Health Maintenance Results * (ABNORMAL) Pap Smear (07/06/2022) Pap Epithelial cell abnormality(A ) Negative for intraephithelial lesion or malignancy, Other Comment:Ascus HPV Not Detected Undetected, Indeterminate, Quantitative, Not Detected Historical Provider MD HEALTH MAINTENANCE Final Result from Last 3 Months or Most Recently Relevant to Health Maintenance Insurance HMO [employer] Care Teams Ornamenter Hand Relationship Specialty Start Date End Date Yolanda Hoyos MD [address] [place] [address] PCP - General Family Medicine 03/26/18
--- OUTSIDE RECORDS SUMMARY | 2024-11-26 10:31 | XMS_ITS | Encounter Summary ---
Author Organization [employer] Address [address] [place] [address] [address] [place] [address] Care Team Providers Care Sales Expert Name Role Phone Yolanda Hoyos MD Primary Care Provider Encounter Details Date Type Department Care Team (Late st Contact Info) Description 07/18/2024 Orders Only [facility] [address] [place], [place] [id number] Provider, MD Earle Social History Tobacco Use [...] Procedure Name Priority Date/Time Associated Diagnosis Comments COVID-19 WITH INFLUENZA A, INFLUENZA B AND RSV Routine 07/18/2024 1:17 PM EDT documented in this encounter Results * COVID-19 W/Influenza A, Influenza B and Respiratory Syncytial Virus, [place] (07/18/2024 1:17 PM EDT) Swab us Historical Provider LAB BODY FLUIDS AND STOOL S ORDERABLES Final Result documented in this encounter Visit Diagnoses Not on filedocumented in this encounter Care Teams Sales Expert Relationship Specialty Start Date End Date Yolanda Hoyos MD [address] [place] [address] PCP - General Family Medicine 03/26/18 documented as of this encounter
--- OUTSIDE RECORDS SUMMARY | 2024-11-26 10:31 | XMS_ITS | Encounter Summary ---
Author Organization [employer] Address [address] [place] [address] [address] [place] [address] Care Team Providers Care Boiler Riveter Name Role Phone Yolanda Hoyos MD Primary Care Provider [phone] Encounter Details Date Type Department Care Team ([facility] st Contact Info) Description 01/22/2024 Orders Only [facility] [address] [place] [address] Provider, MD Earle Social History Tobacco Use [...] Procedure Name Priority Date/Time Associated Diagnosis Comments CBC Routine 01/22/2024 1:55 PM EDT documented in this encounter Results * CBC (01/22/2024 1:55 PM EDT) Blood Venous blood specimen / Unknown us Historical Provider LAB BLOOD ORDERABLES Julianna l Result documented in this encounter Visit Diagnoses Not on filedocumented in this encounter Care Teams Boiler Riveter Relationship Specialty Start Date End Date Yolanda Hoyos MD [address] [place] [address] PCP - General Family Medicine 03/26/18 documented as of this encounter
--- OUTSIDE RECORDS SUMMARY | 2024-11-26 10:31 | XMS_ITS | Encounter Summary ---
Author Organization [employer] Address [address] [place] [address] [address] [place] [address] Care Team Providers Care Regulatory Leader Name Role Phone Yolanda Hoyos MD Primary Care Provider [phone] Encounter Details Date Type Department Care Team ([facility] st Contact Info) Description 07/21/2024 Orders Only [facility] [address] [place] [address] Provider, MD Earle Social History Tobacco Use [...] Procedure Name Priority Date/Time Associated Diagnosis Comments HCG,QUALITATIVE (POS/NEG), SERUM Routine 07/18/2024 9:16 AM EDT CBC WITH AUTO DIFFERENTIAL Routine 07/18/2024 9:16 AM EDT BASIC METABOLIC PANEL Routine 07/18/2024 9:14 AM EDT documented in this encounter Results * CBC auto differential (07/18/2024 9:16 AM EDT) Blood Venous blood specimen / Unknown [facility] Provider MD LAB BLOOD ORDERABLES Julianna l Result * HCG,Qualitative (Pos/Neg) (07/18/2024 9:16 AM EDT) Blood Venous blood specimen / Unknown [facility] Provider MD LAB BLOOD ORDERABLES Julianna l Result * Basic Metabolic Panel (07/18/2024 9:14 AM EDT) Blood Venous blood specimen / Unknown [facility] Provider MD LAB BLOOD ORDERABLES Julianna l Result documented in this encounter Visit Diagnoses Not on filedocumented in this encounter Care Teams Regulatory Leader Relationship Specialty Start Date End Date Yolanda Hoyos MD [address] [place] [address] PCP - General Family Medicine 03/26/18 documented as of this encounter
--- OUTSIDE RECORDS SUMMARY | 2024-11-26 10:31 | XMS_ITS | Encounter Summary ---
Author Organization [facility] Address [address] [place] [address] Phone Care Team Providers Care Chief Lock Operator Name Role Phone Yolanda Hoyos MD Primary Care Provider [phone] Encounter Details Date Type Department Care Team ([facility] st Contact Info) Description 01/21/2024 Procedure Pass OR Admitting Dept - Virtual Department [address] [place] [address] Social History Tobacco Use Types Packs/Day Years Used Date Smoking Tobacco: Never Smokeless Tobacco: Never Alcohol Use Standard Drinks/Week Comments Not Currently 0 (1 standard drink = 0.6 oz pur e alcohol) Education Answer Date Recorded Are you interested in more education? Not on mauricio e 07/22/2022 Are you concerned about learning? Not on file 07/22/2022 No 07/22/2022 No 07/22/2022 Digital Access Answer Date Recorded No 08/22/2022 No 08/22/2022 Reliable internet access at home? Not on file 08/22/2022 Device with a working camera? Not on file Intimate Partner Violence Answer Date R ecorded Are you denied basic needs s uch as food, clothing, or medical care? No 01/23/2024 In the past 12 months have y ou been in a relationship with a person who hurts, threatens, or tries to control you? No 01/23/2024 Are you denied basic needs s uch as food, clothing, or medical care? No 01/23/2024 In the past 12 months have y ou been in a relationship with a person who hurts, threatens, or tries to control you? No 01/23/2024 Comments No Sex and Gender Information Value Date Recorded Sex Assigned at Female 05/14/2021 5:08 PM EST Legal Sex Female 12:17 PM EDT Gender Identity Female 05/14/2021 5:08 PM EST Sexual Orientation Straight 05/14/2021 5: 08 PM EST documented as of this encounter Functional Status * Calculated C-SSRS Risk Score (Lifetime/Recent) Answer Date of Assessment Author No Risk Indicated 01/23/2024 1:00 PM EDT Janelle Araujo RN * [place] Suicide Severity Rating Scale (Screener/Recent Self-Report) Question Answer Date of Assessment Author 1. Wish to be (Past 1 Month) No 01/23/2024 1:00 PM EDT Janelle Araujo RN 2. Non-Specific Active Suicidal Thoughts (Past 1 Month) No 01/23/2024 1:00 PM Janelle Broussard RN 6. Suicidal Behavior (Lifetime) No 01/23/2024 1:00 PM EDT Janelle Araujo RN documented as of this encounter Plan of Treatment Not on file documented as of this encounter Visit Diagnoses Not on filedocumented in this encounter Additional Health Concerns Infection Onset Date Last Indicated Resolved Time CoV-Risk 07/18/2024 07/18/2024 07/29/2024 1:21 AM EDT documented as of this encounter Care Teams Chief Lock Operator Relationship Specialty Start Date End Date Yolanda Hoyos MD [address] [place] [id number] PCP - General Pediatrics 12/13/20 documented as of this encounter Additional Source Comments The information contained in this document represents components of the legal health record. It is not the complete legal health record.[facility]
--- OUTSIDE RECORDS SUMMARY | 2024-11-26 10:31 | XMS_ITS | Encounter Summary ---
Author Organization [facility] Address [address] [facility] [address] [place] [address] Phone Care Team Providers Care Hogshead Builder Name Role Phone Yolanda Hoyos MD Primary Care Provider [phone] Encounter Details Date Type Department Care Team (Late st Contact Info) Description 12/01/2022 Transcribe Orders [facility]FT [facility] [address] [place] [address] Kenny Quintero MD [address] [place] [address] [email or web address] Social History Tobacco Use Types Packs/Day Years [...] with a working camera? Not on file Comments No Sex and Gender Information Value [...] documented as of this encounter Care Teams Hogshead Builder Relationship Specialty Start Date End Date Yolanda Hoyos MD [address] [place] [address] PCP - General Pediatrics 12/13/20 documented as of this encounter Additional Source Comments The information contained in this document represents components of the legal health record. It is not the complete legal health record.[facility]
--- OUTSIDE RECORDS SUMMARY | 2024-11-26 10:31 | XMS_ITS | Encounter Summary ---
Author Organization [facility] Address [address] [place] [address] [address] [place] [address] Care Team Providers Care Nurse Chemical Dependency Name Role Phone Yolanda Hoyos MD Primary Care Provider [phone] Encounter Details Date Type Department Care Team ([facility] st Contact Info) Description 07/24/2024 Orders Only [facility] [address] [place] [address] Provider, MD Earle Social History Tobacco Use [...] Procedure Name Priority Date/Time Associated Diagnosis Comments BLOOD CULTURE Routine 07/18/2024 9:17 AM EDT documented in this encounter Results * Blood culture (07/18/2024 9:17 AM EDT) Blood Venous blood specimen / Unknown us Historical Provider LAB MICROBIOLOGY - GENERA L ORDERABLES Final Result documented in this encounter Visit Diagnoses Not on filedocumented in this encounter Care Teams Nurse Chemical Dependency Relationship Specialty Start Date End Date Yolanda Hoyos MD [address] [place] [id number] PCP - General Family Medicine 03/26/18 documented as of this encounter
--- OUTSIDE RECORDS SUMMARY | 2024-11-26 10:31 | XMS_ITS | Encounter Summary ---
Author Organization [employer] [facility] [employer] Address [address] [place] [address] [address] [place] [address] Care Team Providers Care Assembler For Puller Over Hand Name Role Phone Yolanda Hoyos MD Primary Care Provider [phone] Encounter Details Date Type Department Care Team (Late st Contact Info) Description 10/16/2023 Orders Only [facility] [address] [place], [place] [id number] Provider, MD Earle Social History Tobacco Use [...] Procedure Name Priority Date/Time Associated Diagnosis Comments GLUCOSE TOLERANCE 1 HOUR Routine 10/15/2023 11:00 AM EDT CBC Routine 10/15/2023 11:00 AM EDT PROTEIN CREATININE RATIO, URINE Routine 10/15/2023 10:52 AM EDT SYPHILIS SCREEN Routine 10/15/2023 10:02 AM EDT documented in this encounter Results * GLUCOSE TOLERANCE 1 HOUR (10/15/2023 11:00 AM EDT) [facility] Provider MD LAB BLOOD ORDERABLES Julianna l Result * CBC (10/15/2023 11:00 AM EDT) Blood Venous blood specimen / Unknown [facility] Provider MD LAB BLOOD ORDERABLES Julianna l Result * Protein Creatinine Ratio, Urine (10/15/2023 10:52 AM EDT) [facility] Provider MD LAB URINE ORDERABLES Julianna l Result * Syphilis Screen (10/15/2023 10:02 AM EDT) Blood [facility] Provider MD LAB BLOOD ORDERABLES Julianna l Result documented in this encounter Visit Diagnoses Not on filedocumented in this encounter Care Teams Assembler For Puller Over Hand Relationship Specialty Start Date End Date Yolanda Hoyos MD [address] [place] [address] PCP - General Family Medicine 03/26/18 documented as of this encounter
[2024-11-26 14:03] LABS: MANUAL DIFF FLAG NO
[2024-11-26 14:05] LABS: Hematocrit 38.7 % (37.0-47.0); Hemoglobin 12.9 g/dl (12.0-16.0); Imm Gran Abs Auto 0.01 X10*3/uL (0.00-0.03); Imm Gran Pct Auto 0.2 % (0.0-0.4); Lymphocytes Absolute Auto 1.9 X10*3/uL (1.2-4.9); Mean Corpuscular HGB Conc 33.3 g/dl (31.0-35.0); Mean Corpuscular Hemoglobin 29.3 pg (27.0-33.0); Mean Corpuscular Volume 88.0 fL (80.0-98.0); NRBC Abs Auto 0.000 X10*3/uL (0.0-0.012); NRBC Pct Auto 0.0 /100WBC (0.0-0.2); Platelet Count 209 X10*3/uL (160-400); Red Blood Count 4.40 X10*6/uL (4.20-5.50); White Blood Count 5.3 X10*3/uL (4.8-10.8)
[2024-11-26 14:20] LABS: Hemoglobin A1C 111.9944 umol/L; Total Hemoglobin (HGBA1C) 3315.8260 umol/L
[2024-11-26 14:40] LABS: Alanine Aminotransferase 16 U/L (0-31); Albumin Level 4.3 g/dL (3.5-5.0); Alkaline Phosphatase 58 U/L (39-117); Anion Gap 11 (12-20); Aspartate Amino Transferase 28 U/L (5-31); Blood Urea Nitrogen 8 mg/dL (9-16); Calcium 8.6 mg/dL (8.4-10.2); Carbon Dioxide 23 mmol/L (22-29); Chloride 108 mmol/L (96-108); Cholesterol 201 mg/dL (<200); Estimated Glomerular Filt Rate > 60; HDL Cholesterol 53 mg/dL (>40); Potassium 3.9 mmol/L (3.3-5.1); Sodium 138 mmol/L (135-145); Total Protein 7.4 g/dL (6.5-8.0); Triglycerides 102 mg/dL (<150)
== END 2024-11-26 09:34 | disposition home or self-care (01) ==
LOC: HO.CHCLDS 09:33
PROVIDERS: Visit Provider Pediatrics
DX: Z00.00 Encounter for general adult medical examination without abnormal findings (principal); Z13.6 Encounter for screening for cardiovascular disorders; Z13.1 Encounter for screening for diabetes mellitus; J45.50 Severe persistent asthma, uncomplicated
CPT/HCPCS: 36415; 80048; 80061; 80076; 82306; 83036; 84443; 85025

== ENCOUNTER 2024-12-31 10:17 | Outpatient (REF) | payer BC, SELFPAY ==
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
== END 2024-12-31 10:18 | disposition home or self-care (01) ==
LOC: HO.HHCX 10:17
PROVIDERS: PCP Pediatrics; Visit Provider Internal Medicine
DX: M54.50 Low back pain, unspecified (principal)
CPT/HCPCS: 72100

== ENCOUNTER → 2024-12-31 10:26 | Outpatient (BNV) | payer BC, SELFPAY | PROVIDERS: PCP Pediatrics; Visit Provider Radiology Diagnostic Radiology | DX: M54.50 Low back pain, unspecified (principal) | CPT/HCPCS: 72100 ==